=== PATIENT | female | born 1980 | race Caucasian/White ===

== ENCOUNTER → 2016-11-05 | Outpatient (CLI) | payer OTHER ==
--- NOTE | 2016-11-05 09:59 | US ---
November 05, [address] Vlad Duron, Thank you for requesting consultation and a detailed obstetrical ultrasound for Mrs. 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 As you know, Meri is a 36 year old G 3, P 2001 . Her due date is 03/21/17 by LMP and 8 week ultrasound. Her current gestational age based on this dating is 20 weeks 4 days. Her genetic scree lee revealed a reassuring NIPT and Preparent screen. Her first child was born with PCD which was di agnosed postnatally after a bought of pneumonia as an infant and imaging revealing situs inversus tot leanna. The cardiac anatomy was normal without any vascular interruptions. Both of her children were born vaginally as operative deliveries (forceps and vacuum). The largest baby weighed 9 lb 7 oz. ULTRASOUND Number of fetuses: 1 Placental location: Right lateral; no evidence of previa Placental cord insertion: Intraplacental presentation: Cephalic Cervix: 3.9 cm viewed transabdominally Maximum Vertical Pocket: 4.2 cm The adnexa were evaluated. No pathology was seen. Right ovary is not seen on today's ultrasound. Left ovary is visualized and appears normal. It measures 2.2 x 1.1 x 2.3 cm. MEASUREMENTS: Biparietal diameter: 49 mm 21 weeks, 0 days Head circumference: 178 mm 20 weeks, 2 days Abdominal circumference: 161 mm 21 weeks, 2 days Femur length: 37 mm 21 weeks, 5 days Humerus length: 35 mm 22 weeks, 1 days Transcerebellar diameter: 21 mm 20 weeks, 1 days Average ultrasound age: 21 weeks, 1 days Estimated weight: 414 gm weight percentile: 83% ANATOMY Supratentorial brain: Normal including views of the falx, cavum septum pellucidum and choroids Lateral Ventricle: Normal, measuring 6.8 mm Posterior fossa: Normal including the cerebellum and cisterna magna Spine: Normal Nuchal fold: 5.1 mm normal Face: Normal views of the lip and nose area Profile: Suboptimal Palate: Limited but normal appearance of the alveolar ridge Cardiac Exam: Four chamber view of the heart: Normal including intraventricular septum Left Ventricular Outflow Tract: Normal Right Ventricular Outflow Tract: Normal 3 Vessel View: Normal Tracheal View: Normal Aortic Arch: Normal Ductal Arch: Normal SVC/IVC: Normal Heart Rate: 150 bpm Diaphragm: No overt abnormalities have been detected Stomach: Normal Umbilical cord insertion: Normal Right kidney: Normal Left kidney: Normal Bladder: Normal Number of cord vessels: Three Upper extremities: Normal including the number, and architecture Lower extremities: Normal including the number and architecture Gender: Being disclosed at a later date; "Normal" IMPRESSION: 1. Intrauterine at 20 w 4 d, SONA of 03/21/17. This is consistent with her previously esta blished dates. 2. Today's sonogram reveals a normal appearing fetus. 3. Cervical length measures 3.9 cm, and is without evidence of insufficiency. 4. Advanced maternal age; reassuring NIPT. 5. Daughter with PCD. 6. History of macrosomia. RECOMMENDATIONS: I was pleased to review today's ultrasound with your patient. I have reassured her that the gr owth and amniotic fluid volume are appropriate for this gestational age. The detailed anatomic surve y did not reveal any overt abnormalities. Meri is aware that ultrasound is a screening tool and cannot provide definitive genetic diagnosis. Should she desire definitive genetic diagnosis, mihaela handy would need to have a genetic amniocentesis performed. Additionally, we discussed her prior child w ith PCD and that if genetic testing has been completed with known mutation, this could also be evalua ruben by amniocentesis. After our discussion regarding the procedure, benefits, risks, alternatives, an d limitations to the information received Meri DECLINES amniocentesis. Future ultrasound and consultation is left to your clinical discretion. Thank you for allowing me the opportunity to consult and evaluate your patient. Should you have any questions or concerns please do not hesitate to contact me. This visit was approximately 15 minutes in length with 10 minutes spent in direct face to face consultation reviewing aneuploidy screening ve rsus definitive genetic diagnosis. Sincerely, Thao Leroy MD [employer] Maternal [facility] Department of Obstetrics & Gynecology [facility]
--- NOTE | 2016-11-05 19:14 | US ---
Complete Detailed Obstetrical Sonography Clinical History: 36-year-old female with advanced maternal age and a prior with a child wh ich has Kartagener syndrome. Technique: A curvilinear 5 MHz transducer was used to sonographically evaluate the fetus and the plac enta. M-mode Doppler was used. Dr. Leroy was present. Multiple cine clips were also acquired. Comparison Study: None currently available. LMP: June 14, 2016, indicating an age of 20 weeks 4 days, and an estimated date of delivery of 2016. Findings: There is a single viable intrauterine gestation with the fetus vertex in presentation. The placenta is right lateral in location, with no evidence of previa. There is a three-vessel cord with a normal intraplacental cord insertion. The maternal cervical length is normal, measuring 3.9 cm. The amniotic fluid volume is appropriate, with a maximal vertical pocket of 4.2 cm. The maternal left ov marisabel is normal, measuring 2.2 x 1.1 x 2.3 cm, and the maternal right adnexal region is obscured by bow el gas, precluding evaluation of the right ovary. The heart rate is 150 bpm. The anatomic survey reveals a normal appearance to the supra- and infratentorial structures, an d spine. The lateral ventricular diameter is 6.8 mm. The nuchal fold is 5.1 mm, and the cisterna magn a is 4.5 mm. The nasolabial anatomy appears normal, although there is suboptimal assessment of the sagittal facial profile. There is a normal appearance of the alveolar ridge. There is a 4 chamber ed heart with interventricular septum, right and left ventricular outflow tracts, inflow tracts, duct al and aortic arch, and a three-vessel tracheal view. The diaphragm is intact. The stomach, right and left kidneys, urinary bladder, and upper and lower extremities are identified. The gender is i dentified, but not disclosed. biometry is as follows: The biparietal diameter is 49 mm, corresponding to an age of 21 week 0 days +/- 1 week 6 days, which is at the 64th percentile. The head circumference is 178 mm, corresponding to an age of 20 weeks 2 days +/- 1 week 4 days, which is at the 27th percentile. The abdominal circumference is 161 mm corresponding to an age of 21 weeks 2 days +/- 2 weeks 1 day, w hich is at the 65th percentile. The femur length is 37 mm, corresponding to an age of 21 weeks 5 days +/- 1 week 6 days, which is at the 79th percentile. The humeral length is 35 mm corresponding to an age of 22 weeks 1 day, and the transverse cerebellar diameter is 21 mm corresponding to an age of 20 weeks 1 day +/- 1 week 0 days. The composite gestational age based upon the above parameters is 21 weeks 1 day. The estimated weight is 414 grams +/- 60 grams, which is 15 ounces +/- 2 ounces, which is at th e 83rd percentile. The head circumference to abdominal circumference ratio is 1.10. The femur length to biparietal diame ter ratio is 75%, and the femur length to abdominal circumference ratio is 23%. Impression: There is a single viable intrauterine gestation with concordant biometry, and no overt f etal structural anomaly identified. Please also refer to Dr. Leroy's separate assessments and specific recommendations for follow up.
== END ==
LOC: FIMAGING 08:08
PROVIDERS: ATTEND Obstetrics & Gynecology
DX: O09.522 Supervision of elderly multigravida, second trimester (principal); Z3A.20 20 weeks gestation of pregnancy

== ENCOUNTER 2017-03-25 05:29 | Inpatient (IN) | payer OTHER ==
[2017-03-25] MEDS ORDERED: LR 1,000 ML IV PRN (05:44)
[2017-03-25] MEDS ORDERED: EPSOM SALT 454 GM TP PRN (05:44)
[2017-03-25] MEDS ORDERED: OXYTOCIN/RINGERS LACTATE 1,000 ML IV PRN (05:44)
[2017-03-25] MEDS ORDERED: TERBUTALINE SULFATE 1 MG/ML VIAL IV PRN (05:44)
[2017-03-25] MEDS ORDERED: OLIVE OIL 118 ML BTL MISC PRN (05:44)
[2017-03-25] MEDS ORDERED: OLIVE OIL 118 ML BTL ONE (06:14)
[2017-03-25] MEDS ORDERED: AMMONIA AROMATIC 1 EACH AMP IH ONE (06:14)
[2017-03-25] MEDS ORDERED: OXYTOCIN 10 UNIT/ML VIAL ONE (06:14)
[2017-03-25] MEDS ORDERED: TERBUTALINE SULFATE 1 MG/ML VIAL ONE (06:14)
[2017-03-25] MEDS ORDERED: LIDOCAINE 1% 300 MG/30 ML SDV ONE (06:14)
[2017-03-25] MEDS ORDERED: MISOPROSTOL 200 MCG TAB ONE (06:15)
--- NOTE | 2017-03-25 06:37 | GHP ---
[f rep st] HISTORY AND PHYSICAL DATE OF ADMISSION: 03/25/2017 CHIEF COMPLAINT: Uterine contractions. HISTORY OF PRESENT ILLNESS: The patient is a 37-year-old, 3, para 2002 with an estimated gestational age of 40 weeks and 4 days with a due date of March 21, 2017 based on last menstrual period and first-trimester ultrasound. She woke up this morning and began having regular painful uterine contractions and was advised to come to the hospital for evaluation for labor . She denies leakage of fluid at this time. She denies vaginal bleeding. She has active movement of her baby girl. REVIEW OF SYSTEMS: Negative apart from stated in history of present illness. PAST MEDICAL HISTORY: Cluster headaches. PAST SURGICAL HISTORY: None. FAMILY HISTORY: She has a daughter who was born with situs inversus and PCD. Otherwise noncontributory. SOCIAL HISTORY: She is . She and her live at home with their 2 other children. She denies alcohol, tobacco, or drug use. MEDICATIONS: vitamins. ALLERGIES: No known drug allergies. OBSTETRICAL HISTORY: Current is complicated by advanced maternal age with a negative cell free DNA screening and anatomy ultrasound. She has a history of a forceps assisted vaginal delivery in October 2006 for an 8 pounds 3 ounces infant and a history of a vacuum assisted vaginal delivery in February 2009 for a 9 pounds 7 ounces infant. Both were born just after 40 weeks. OBSTETRICAL LABORATORIES: Blood type O positive, antibody screen negative. Hematocrit 38. Rubella immune, RPR nonreactive. Urine screen negative. Hep B surface antigen negative. HIV negative. Gonorrhea, chlamydia negative. Cystic fibrosis screen negative. One hour Glucola 99. Group B strep negative on 02/19/2017. OBJECTIVE: VITAL SIGNS: Blood pressure 116/75, heart rate 68. GENERAL: Alert , awake in [id number] distress during contractions, resting comfortably between contractions. LUNGS: Respirations nonlabored. CARDIOVASCULAR: Regular rate and rhythm. Normal pulses. ABDOMEN: Gravid, soft, nontender. EFW 8.5 pounds by Adán exam. Vertex confirmed by ultrasound. EXTREMITIES: No edema. Sterile vaginal exam performed by RN Noemi notable for dilation to 3- 4 cm, 70% effaced, and -2 station with intact membranes. monitoring baseline 125 beats per minute, moderate variability, positive accelerations, no decelerations. Contractions every 4 minutes. ASSESSMENT: 37-year-old, 3, para 2001 at 40 weeks 4 days estimated gestational age by LMP and 1st trimester ultrasound who presents in early labor. status reassuring. GBS negative. She is having regular painful contractions. Her has been uncomplicated apart from advanced maternal age. Her history is notable for 2 prior infants who required assisted deliveries, the first was due to the length of pushing and the second was due to non-reassuring heart tones due to a nuchal cord per report by the parents. PLAN: Admit to Labor and Delivery for labor. We discussed that if her contractions space out and she does not advance further in labor she would be a candidate for augmentation. However, based on her current contraction pattern and quality, I think likely she will progress into active labor shortly. We will plan intermittent monitoring per protocol. No antibiotics are indicated. She is requesting nitrous for pain relief at this time and may consider epidural in the future. We will plan routine intrapartum care and expect vaginal delivery. /[id number]/MODL MTDD
--- NOTE | 2017-03-25 07:44 | PREANESOB ---
Obstetric Pre-Anesthesia Info - General Info Proposed Procedure: Labor and delivery : 3 Para: 2 WBD: 40 - Info Status: Postmature Monitors: External FHR Baseline (bpm): 125 FHR Pattern: Reassuring - Labor Status Cervical Dilation per last OB SVE: 4 Indications for Labor Analgesia: Pain Control Labor Epidural: Proposed Anesthesia ROS: Prior labor epidural x 2. Allergies/Adverse Reactions: Allergy/AdvReac Type Severity Reaction Status Date / Time No Known Allergies Allergy Unverified 03/25/17 05:44 Visit Medications: Generic Name Dose Route Start Last Admin Trade Name Freq PRN Reason Stop Dose Admin Lactated Ringer's 1,000 mls @ 0 mls/hr 03/25/17 05:44 Lr IV 09/21/17 05:43 PRN PRN SEE PROTOCOL CONDITIONS Protocol Per Protocol Oxytocin/Lactated Ringer's 1,000 mls @ 150 mls/hr 03/25/17 05:44 Pitocin 20 Units/Lr (Premix) IV PRN PRN Post- bleeding Ibuprofen 600 mg 03/25/17 05:44 Motrin PO 09/21/17 05:43 Q6HRS PRN post , inflammation Magnesium Sulfate 454 gm 03/25/17 05:44 Epsom Salt TP 09/21/17 05:43 PRN PRN perineal discomfort Tucker Oil 118 ml 03/25/17 05:44 Sweet Oil MISC 09/21/17 05:43 ONCE PRN preneal massage Terbutaline Sulfate 0.25 mg 03/25/17 05:44 Brethine IV 09/21/17 05:43 ONCE PRN Tachysystole Discontinued Medications Generic Name Dose Route Start Last Admin Trade Name Freq PRN Reason Stop Dose Admin Ammonia (Aromatic Spirit) Confirm 03/25/17 06:14 Ammonia Aromatic Administered 03/25/17 06:15 Dose 1 each IH .STK-MED ONE Lidocaine HCl Confirm 03/25/17 06:14 Lidocaine Hcl 1% Administered 03/25/17 06:15 Dose 300 mg .ROUTE .STK-MED ONE Misoprostol Confirm 03/25/17 06:15 Cytotec Administered 03/25/17 06:16 Dose 1,000 mcg .ROUTE .STK-MED ONE Tucker Oil Confirm 03/25/17 06:14 Sweet Oil Administered 03/25/17 06:15 Dose 118 ml .ROUTE .STK-MED ONE Oxytocin Confirm 03/25/17 06:14 Pitocin Administered 03/25/17 06:15 Dose 30 unit .ROUTE .STK-MED ONE Terbutaline Sulfate Confirm 03/25/17 06:14 Brethine Administered 03/25/17 06:15 Dose 1 mg .ROUTE .STK-MED ONE - Anesthesia History Response to Local Anesthetics: Normal Anesthesia & Operative History: Prob w/Prior Anesthesia (Second labor epidural ( 2008) was one sided.) Family Anesthesia History: Negative - Social History Substance Use/Abuse: Denies - Focused Exam Blood Pressure: 116/75 Heart Rate: 68 Respiratory Rate: 18 Height/Weight (Nursing): Height 175.26 cm Weight 81.647 kg Physical Exam: Within normal limits. ASA Status: II Labs: Hct 36.2 and Plt 178. - Plan Anesthetic Plan: CSE
[2017-03-25 07:50] LABS: % IMMATURE GRANULYOCYTES 0.4 % (0.0-1.1); ABSOLUTE IMMATURE GRANULOCYTES 0.04 10^3/uL (0.00-0.10); ADD DIFF? NO; ADD MORPH? NO; ADD SCAN? NO; ATYPICAL LYMPHOCYTE FLAG 0 (0-99); FRAGMENT RBC FLAG 0 (0-99); HEMATOCRIT 36.2 % (38.0-47.0); LEFT SHIFT FLG 10 (0-99); LIPEMIA HEMOLYSIS FLAG 80 (0-99); MEAN CELL HEMOGLOBIN 28.9 pg (27.9-34.1); MEAN CELL HEMOGLOBIN CONCENTR. 33.1 g/dL (32.4-36.7); MEAN CELL VOLUME 87.2 fL (81.5-99.8); MEAN PLATELET VOLUME 10.1 fL (8.7-11.7); PLATELET CLUMPS FLAG 10 (0-99); PLATELET COUNT 178 10^3/uL (150-400); RED BLOOD CELL COUNT 4.15 10^6/uL (4.18-5.33); RED CELL DISTRIBUTION WIDTH 13.6 % (11.5-15.2)
--- NOTE | 2017-03-25 08:49 | OBPROG ---
OBG Labor Progress Note Assessment/Plan: Assessment: 37 yo @ 40 4/7, active labor Plan: 03/25/17 08:47 FWB reassuring. GBS neg. Expect . Subjective: 37 yo @ 40 4/7, active labor-feels like pushing. Objective: 03/25/17 07:43 Patient ABO/Rh O POSITIVE 03/25/17 07:43 Temp Pulse Resp BP Pulse Ox 68 18 116/75 03/25/17 08:04 03/25/17 08:04 03/25/17 08:04 116/75 68 18 36.2 - SVE Dilation (cm): 9 Effacement (%): 100 Station: 0 Saucedo Current Contraction Pattern: Regular FHR (bpm): 140 FHR Pattern Variability: Moderate FHR Category: 2 Membranes: AROM Amniotic Fluid Color: Clear - Procedures Non-surgical Procedures: Amniotomy Oxytocin Orders Assessment - Pre-Induction/Augmentation Assessment Gestational Age: 40 week(s) and 4 day(s) ICD10 Worksheet Patient Problems: Problems Problem Status Onset Active labor Acute
--- NOTE | 2017-03-25 09:25 | OBDEL ---
Info Type: Vaginal GBS+: No Indications for Delivery: Spontaneous Labor Vaginal Delivery - Labor and Delivery Onset of Contractions Date: 03/25/17 Onset of Contractions Time: 02:00 Onset of Contractions Type: Spontaneous Rupture of Membranes Date: 03/25/17 Rupture of Membranes Time: 08:45 Rupture of Membranes Type: Artificial Amniotic Fluid Color: Clear Dilation Complete Date: 03/25/17 Dilation Complete Time: 08:55 Placenta Delivery Date: 03/25/17 Non-surgical Procedures: Amniotomy Vaginal Sponge Count Correct: Yes Vaginal Needle Count Correct: Yes Vaginal Sweep Performed: No EBL: 200 ml Delivery Events: None - Medications Labor Augmentation/Induction Methods Used: None Data Saucedo Delivery Date: 03/25/17 Delivery Time: 09:10 SONA: 03/21/17 Gestational Age: 40 week(s) and 4 day(s) Sex of Infant: Female Score (1 Min): 8 Score (5 Min): 9 ICD10 Worksheet Patient Problems: Problems Problem Status Onset Active labor Acute
[2017-03-25] MEDS: IBUPROFEN 600 MG TAB PO PRN ×3 (09:41→22:41)
[2017-03-25] MEDS ORDERED: HYDROCORTISONE 0.5% CREAM TP PRN (14:23)
[2017-03-25] MEDS ORDERED: DOCUSATE SODIUM 100 MG CAP PO PRN (14:23)
[2017-03-25] MEDS ORDERED: HYDROCODONE/APAP 5/325 TAB PO PRN (14:23)
[2017-03-25] MEDS ORDERED: SIMETHICONE 80 MG TAB CHEW PO PRN (14:23)
--- NOTE | 2017-03-25 22:43 | OBGCSDC ---
General Delivery Information - General Info : 3 Para: 3 Delivery Physician/CNM: Angela Figueredo Admission Date: 03/25/17 Labs: Patient ABO/Rh O POSITIVE 03/25/17 07:43 Hct 36.2 % (38.0-47.0) L 03/25/17 07:43 Vaginal - Diagnosis Labor: Spontaneous Rupture of Membranes Type: Artificial Amniotic Fluid Color: Clear Delivery Events: None - Operations/Procedures Non-surgical Procedures: Amniotomy L&D Analgesia/Anesthesia Type: Nitrous - Hospital Course Antepartum: AMA Intrapartum: uncomplicated : uncomplicated - Delivery Non-surgical Procedures: Amniotomy L&D Analgesia/Anesthesia Type: Nitrous Data Saucedo Delivery Date: 03/25/17 Delivery Time: 09:11 SONA: 03/21/17 Gestational Age: 40 week(s) and 4 day(s) Sex of Infant: Female Gilmer Weight (gm): 3772 g Score (1 Min): 8 Score (5 Min): 9 Discharge Information - Discharge Information Discharge Medications: Ibuprofen Condition: Good Instruction/Follow Up: See Instruction Sheet, Six Weeks
[2017-03-26] MEDS: IBUPROFEN 600 MG TAB PO PRN ×3 (06:00→18:03)
--- NOTE | 2017-03-26 10:06 | OBPP ---
Progress Note Assessment/Plan: Assessment: PPD#1 s/p at term Rh pos, rub imm Recovering well Plan: Baby didn't pass Ox sat tests--h/o first baby with situs inversus Plan home PPD#2 Routine care 03/26/17 10:06 Subjective: Feels great, no concerns. BF going well. Minimal pain/bleeding Objective: 03/25/17 07:43 Patient ABO/Rh O POSITIVE 03/25/17 07:43 Temp Pulse Resp BP Pulse Ox 37.1 C 64 16 105/70 97 03/25/17 20:00 03/25/17 20:00 03/25/17 20:00 03/25/17 20:00 03/25/17 20:00 Uterine Position/Fundal Height: Umbilicus -3 Uterine Tone: Firm
[2017-03-27] MEDS: IBUPROFEN 600 MG TAB PO PRN ×3 (03:58→16:24)
--- NOTE | 2017-03-27 08:16 | OBPP ---
Progress Note Assessment/Plan: Assessment: 37 yo s/p , ppd 2, doing well. Plan: Routine care. Doing well, rh +, home today. 03/27/17 08:15 Subjective: 37 yo s/p , ppd 2, doing well. Objective: 03/25/17 07:43 Patient ABO/Rh O POSITIVE 03/25/17 07:43 Temp Pulse Resp BP Pulse Ox 36.1 C 76 17 112/70 97 03/26/17 20:00 03/26/17 20:00 03/26/17 20:00 03/26/17 20:00 03/26/17 20:00 Physical Exam - Physical Exam General Appearance: WD/WN Respiratory: lungs clear Cardiac/Chest: regular rate, rhythm Abdomen: non-tender Extremities: non-tender Skin: warm/dry Neuro/Psych: oriented x 3
[2017-03-27 09:15] VITALS: BP 106/70; PULSE 78; RESP 16; TEMP 98.3; O2SAT 96
== END 2017-03-27 16:51 | disposition home or self-care (01) | DRG 775 ==
LOC: FLD 05:29 → FOB 11:56
PROVIDERS: ADMIT Obstetrics & Gynecology; ATTEND Obstetrics & Gynecology
DX: O48.0 Post-term pregnancy (principal); O09.523 Supervision of elderly multigravida, third trimester; Z3A.40 40 weeks gestation of pregnancy; Z37.0 Single live birth
CPT/HCPCS: J2590; J3105